=== PATIENT | female | born 1960 | race African-American/Black ===

== ENCOUNTER 2021-06-23 11:19 | Observation (INO) ==
[2021-06-23] MEDS ORDERED: Morphine Sulfate 2 MG/ML SYRINGE IVP ONE (11:34)
[2021-06-23] MEDS ORDERED: Ondansetron 4 MG/2 ML VIAL IVP ONE (11:34)
[2021-06-23] MEDS ORDERED: Ketorolac 30 MG/ML VIAL IVP ONE (11:34)
[2021-06-23] MEDS: Nitroglycerin 0.4 MG TAB.SUBL SL PRN ×2 (11:42→12:20)
[2021-06-23 12:14] LABS: Basophils % 0.6 %; Eosinophils # 0.1 K/mcL (0.0-0.6); Eosinophils % 2.2 %; Hematocrit 32.9 % (35.3-44.9); Hemoglobin 11.6 g/dL (11.5-15.4); Immature Granulocytes % 1.6 % (0-4); Lymphocytes # 1.5 K/mcL (0.6-4.6); Lymphocytes % 29.8 %; Mean Corpuscular HGB Conc 35.3 g/dL (31.6-35.5); Mean Corpuscular Hemoglobin 27.9 pg (28.0-33.3); Mean Corpuscular Volume 79.1 fL (83.0-100.0); Mean Platelet Volume 8.9 fL (9.4-12.4); Monocytes # 0.4 K/mcL (0.0-1.3); Monocytes % 7.4 %; Neutrophils # 2.9 K/mcL (1.6-8.9); Platelet Count 202 K/mcL (140-400); Red Blood Count 4.16 M/mcL (3.82-4.97); Red Cell Distribution Width 13.7 % (11.5-14.5); Segmented Neutrophils % 58.4 %
[2021-06-23 12:25] LABS: Prothrombin Time 11.6 Seconds (9.4-12.1)
[2021-06-23 12:36] LABS: BUN/Creatinine Ratio 13 (6-26); Blood Urea Nitrogen 13 mg/dL (8-23); Carbon Dioxide 29 mEq/L (23-29); Chloride 96 mEq/L (98-107); Glucose 135 mg/dL (70-105); Osmolality,Calculated 280 (280-300); Potassium 3.9 mEq/L (3.5-5.1); Sodium 134 mEq/L (136-145); Troponin I < 0.03 ng/mL (< 0.04); eGFR For African Americans > 60 (> 60); eGFR For Non-African Americans 58 (> 60)
[2021-06-23] MEDS ORDERED: Dextrose 4 GM Chewable Tablets PO PRN ×2 (13:38)
[2021-06-23] MEDS ORDERED: *HR* Heparin 5,000 UNIT/ML VIAL IVP PRN ×2 (13:38)
[2021-06-23] MEDS ORDERED: Melatonin 3 MG TABLET PO PRN (13:38)
[2021-06-23] MEDS ORDERED: Acetaminophen 325 MG TABLET PO PRN (13:38)
[2021-06-23] MEDS ORDERED: MOM Conc 10 ML UD.LIQ PO PRN (13:38)
[2021-06-23] MEDS ORDERED: D5% in Water 1,000 ML IVC PRN (13:38)
[2021-06-23] MEDS ORDERED: Naloxone 0.4 MG/ML INJ IVP PRN (13:38)
[2021-06-23] MEDS ORDERED: *HR* Dextrose 50 % in Water (Syg) 50 ML SYRINGE IVP PRN (13:38)
[2021-06-23] MEDS ORDERED: Ondansetron 4 MG/2 ML VIAL IVP PRN (13:38)
[2021-06-23] MEDS ORDERED: *HR* Heparin 5,000 UNIT/ML VIAL IVP ONE ×2 (13:38→15:32)
[2021-06-23] MEDS ORDERED: Mag Hydrox/Al Hydrox/Simeth 30 ML UDC PO PRN (13:38)
[2021-06-23] MEDS ORDERED: Heparin 25,000UNIT/250ML 1/2NS 25,000 UNIT/250 ML IV.SOLN IVC SCH (13:45)
[2021-06-23] MEDS ORDERED: Isovue-370 500 ML BOTTLE IVP ONE (14:13)
[2021-06-23] MEDS ORDERED: Aspirin 325 MG TABLET PO ONE (14:44)
[2021-06-23] MEDS: Gabapentin 300 MG CAPSULE PO SCH ×2 (16:17→23:43)
[2021-06-23] MEDS: tiZANidine 4 MG TABLET PO SCH ×2 (16:17→23:43)
[2021-06-23] MEDS: *HR* OxyCODONE Immed Rel 5 MG TABLET PO SCH ×2 (17:03→23:42)
[2021-06-23] MEDS: Insulin LISPRO 300 UNITS/3 ML VIAL SUBQ SCH (18:03)
[2021-06-23] MEDS ORDERED: Insulin LISPRO 300 UNITS/3 ML VIAL SUBQ SCH (21:00)
[2021-06-24 02:14] LABS: Hematocrit 31.9 % (35.3-44.9); Hemoglobin 11.1 g/dL (11.5-15.4); Mean Corpuscular HGB Conc 34.8 g/dL (31.6-35.5); Mean Corpuscular Hemoglobin 27.3 pg (28.0-33.3); Mean Corpuscular Volume 78.4 fL (83.0-100.0); Mean Platelet Volume 9.2 fL (9.4-12.4); Platelet Count 196 K/mcL (140-400); Red Blood Count 4.07 M/mcL (3.82-4.97); Red Cell Distribution Width 13.7 % (11.5-14.5); White Blood Count 5.3 K/mcL (4.3-11.1)
[2021-06-24 02:50] LABS: BUN/Creatinine Ratio 11 (6-26); Blood Urea Nitrogen 11 mg/dL (8-23); Calcium 9.6 mg/dL (8.6-10.3); Carbon Dioxide 31 mEq/L (23-29); Chloride 95 mEq/L (98-107); Chol/HDL Ratio 3.1 (0-4.9); Cholesterol 137 mg/dL (< 200); Glucose 95 mg/dL (70-105); HDL Cholesterol 44 mg/dL (40-59); LDL Cholesterol,Calculated 73 mg/dL (< 100); Magnesium 1.7 mg/dL (1.6-2.6); Osmolality,Calculated 277 (280-300); Potassium 3.9 mEq/L (3.5-5.1); Sodium 134 mEq/L (136-145); Triglycerides 102 mg/dL (< 150); eGFR For African Americans > 60 (> 60); eGFR For Non-African Americans 57 (> 60)
[2021-06-24] MEDS ORDERED: Regadenoson 0.4 MG/5 ML SYRINGE IVP ONE (06:28)
[2021-06-24] MEDS: Insulin LISPRO 300 UNITS/3 ML VIAL SUBQ SCH ×3 (07:27→16:06)
[2021-06-24] MEDS ORDERED: amLODIPine 5 MG TABLET PO SCH (09:00)
[2021-06-24] MEDS ORDERED: Aspirin Enteric Coated 81 MG Tablet PO SCH (09:00)
[2021-06-24] MEDS ORDERED: Nicotine 21 MG PATCH.TD24 TD SCH (09:00)
[2021-06-24] MEDS ORDERED: Furosemide 20 MG TABLET PO SCH (09:00)
[2021-06-24] MEDS: Gabapentin 300 MG CAPSULE PO SCH ×2 (10:07→16:05)
[2021-06-24] MEDS: tiZANidine 4 MG TABLET PO SCH ×2 (10:07→16:05)
[2021-06-24] MEDS: *HR* OxyCODONE Immed Rel 5 MG TABLET PO SCH ×3 (10:07→18:21)
[2021-06-24] MEDS ORDERED: *HR* Succinylcholine 200 MG/10 ML VIAL IVP ONE (13:13)
[2021-06-24] MEDS ORDERED: Ondansetron 4 MG/2 ML VIAL ONE (13:15)
[2021-06-24] MEDS ORDERED: Lidocaine -MPF 2% 5 ML VIAL ONE (13:15)
[2021-06-24] MEDS ORDERED: *HR* Propofol 200 MG/20 ML VIAL IVP ONE (13:15)
[2021-06-24] MEDS ORDERED: *HR* FentaNYL (PF) 100 MCG/2 ML VIAL ONE (13:15)
[2021-06-24] MEDS ORDERED: Albuterol 2.5 MG/3 ML NEBULIZER IH PRN (13:31)
[2021-06-24] MEDS ORDERED: Nitroglycerin 0.4 MG TAB.SUBL SL PRN (13:31)
[2021-06-24] MEDS ORDERED: Naloxone 0.4 MG/ML INJ IVP PRN (13:31)
[2021-06-24 16:05] VITALS: TEMP 98.1
[2021-06-24 18:20] VITALS: BP 110/69; PULSE 67; O2SAT 96
== END 2021-06-24 19:47 | disposition home or self-care (01) ==
LOC: EMEROOARM 11:19 → 3ANU 11:19 → SUATTDRO 13:18 → 3ANU 14:03
PROVIDERS: ADMIT Internal Medicine; ATTEND Student in an Organized Health Care Education/Training Program
PROC: ENDOBRF (2021-06-24 10:00)